=== PATIENT | male | born 1960 | race Caucasian/White ===

== ENCOUNTER 2017-01-17 20:40 | Emergency (ER) | payer SELFPAY ==
[~2017-01-17] VITALS: Ht 180.3 cm; Wt 59.3 kg
[~2017-01-17 20:40] MED LIST: BACT800T5 PO; CEPH500C3 PO
[2017-01-17 20:42] VITALS: BP 131/60; PULSE 68; RESP 20; TEMP 97.7; O2SAT 97
[2017-01-17] MEDS ORDERED: METH40TA PO (20:57)
[2017-01-17] MEDS ORDERED: LIDOCAINE HCL 1% 50 ML VIAL INFIL ONE (21:30)
--- NOTE | 2017-01-17 22:10 | PD ---
HPI . Right hand injury Chief Complaint: Injury Time Seen by Provider: 21:06 Travel History International Travel<30 days: No Contact w/Intl Traveler<30days: No Traveled to known affect area: No History of Present Illness HPI 56-year-old presents to the emergency department for evaluation of right hand injury that occurred at 11 AM today while he was at work. The patient was hit in his right hand with the blunt force object with such force that it is spliced the pad of his fourth digit on his right hand open with an approximate 3 cm laceration from the distal aspect of the finger up to the DIP. Patient denies any fevers, chills, nausea, vomiting, chest pain, shortness breath, paresthesias. Patient is able to move his right hand with some pain. Patient denies any major medical history. Only medication patient takes as a methadone daily. Patient has no known allergies. Patient is not sure if he is up-to- date on his tetanus. 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 SKIN: 3 cm laceration to the fourth digit on the right hand from the distal aspect of the digit to the DIP. HEAD: Normocephalic. Atraumatic. EYES: No scleral icterus. No injection or drainage. NECK: Supple, trachea midline. No JVD or lymphadenopathy. CARDIOVASCULAR: Regular rate and rhythm without murmurs, gallops, or rubs. RESPIRATORY: Breath sounds equal bilaterally. No accessory muscle use. GASTROINTESTINAL: Abdomen soft, non-tender, nondistended. MUSCULOSKELETAL: No cyanosis, or edema. BACK: Nontender without obvious deformity. No CVA tenderness. Data Data Last Documented VS Vital Signs Date Time Temp Pulse Resp B/P (MAP) Pulse Ox O2 Delivery O2 Flow Rate FiO2 01/17/17 20:42 97.7 68 20 131/60 (83) 97 Orders Orders Lidocaine 1% Inj (50 Ml) (Xylocaine 1% I (01/17/17 21:30) Ice/Cold Pack (01/17/17 21:28) MDM Medical Decision Making Medical Screen Exam Complete: Yes Emergency Medical Condition: Yes Differential Diagnosis Differential diagnoses include but not limited to laceration, open fracture, finger contusion Narrative Course 56-year-old male patient presents emergency room for evaluation of laceration to the fourth digit on his right finger. Patient was hit with a blunt force object at around 11 AM at his job and the force of the object spliced the pad of his finger open and a 3 cm laceration from the distal aspect of the phalange to the DIP. Patient is not sure of his tetanus is up-to-date. Patient will be given at tetanus at this visit. X-ray of the right hand will be ordered. Laceration will be repaired and patient placed on prophylactic antibiotics due to the hand being a high-risk area. Patient not in room when quality control lab tech came to get the x-ray. Patient has left the facility. Diagnosis Primary Impression: AMA Patient Instructions: General Instructions Departure Forms: Tests/Procedures Disposition: AGAINST MEDICAL ADVICE Condition: Stable Linda Gross Jan 17, 2017 22:10
== END 2017-01-17 22:08 | disposition left against medical advice (07) ==
LOC: PHEFT 20:40
DX: S69.91XA Unspecified injury of right wrist, hand and finger(s), initial encounter (principal); Z53.21 Procedure and treatment not carried out due to patient leaving prior to being seen by health care provider; W22.8XXA Striking against or struck by other objects, initial encounter; Y93.9 Activity, unspecified; Y99.0 Civilian activity done for income or pay; Z72.0 Tobacco use
CPT/HCPCS: 99281

== ENCOUNTER 2017-09-09 08:40 | Emergency (ER) | payer SELFPAY ==
[~2017-09-09 08:40] MED LIST changes: -BACT800T5 PO; -CEPH500C3 PO; +METH40TA PO
[2017-09-09 08:43] VITALS: BP 147/83; PULSE 77; RESP 14; TEMP 98.1; O2SAT 98
[2017-09-09] MEDS ORDERED: SODIUM CHLORIDE 0.9% FLUSH 10 ML FLUSH IV FLUSH PRN (09:00)
[2017-09-09] MEDS ORDERED: SODIUM CHLOR 0.9% 1000 ML INJ 1,000 ML IV SCH (09:00)
[2017-09-09 09:09] VITALS: BP 149/89; PULSE 67; RESP 18; O2SAT 95
[2017-09-09 09:42] LABS: AUTOMATED NEUTROPHIL # 4.3 TH/MM3 (1.8-7.7); BASOPHIL % 0.4 % (0.0-2.0); EOSINOPHIL % 0.6 % (0.0-4.0); HEMATOCRIT 43.5 % (39.0-51.0); LYMPH % 18.9 % (9.0-44.0); LYMPHOCYTE # 1.2 TH/MM3 (1.0-4.8); MEAN CELL VOLUME 91.9 FL (80.0-100.0); MEAN CORPUSCULAR HEMOGLOBIN 31.8 PG (27.0-34.0); MEAN CORPUSCULAR HGB CONC 34.6 % (32.0-36.0); MEAN PLATELET VOLUME 9.4 FL (7.0-11.0); MONO % 12.4 % (0.0-8.0); MONOCYTE # 0.8 TH/MM3 (0-0.9); NEUT % 67.7 % (16.0-70.0); PLATELET COUNT 178 TH/MM3 (150-450); RED BLOOD COUNT 4.73 MIL/MM3 (4.50-5.90); RED CELL DISTRIBUTION WIDTH 12.6 % (11.6-17.2); WHITE BLOOD COUNT 6.3 TH/MM3 (4.0-11.0)
--- NOTE | 2017-09-09 09:43 | PD ---
HPI Chief Complaint: GI Complaint Time Seen by Provider: 09:28 Travel History International Travel<30 days: No Contact w/Intl Traveler<30days: No Traveled to known affect area: No History of Present Illness HPI Patient is a 57-year-old male who presents the emergency room with complaints of abdominal pain with nausea and vomiting. Patient reports that since Friday morning, he has had epigastric to right upper quadrant abdominal pain with associated nausea and vomiting. Patient denies any radiating pain. Denies any chest pain or shortness of breath. Patient reports that symptoms began around 3 AM and has been persistent since then. Reports that nothing makes pain better or worse. Patient reports that he did have a normal bowel movement yesterday. Patient denies being around any sick contacts, denies any eating any foods which could have caused his symptoms. Denies fever/chills. 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) Allergies-Medications (Allergen,Severity, Reaction): Coded Allergies: No Known Allergies (Verified Adverse Reaction, Unknown, 09/09/17) Reported Meds & Prescriptions Reported Meds & Active Scripts Active Reported Methadone (Methadone HCl) 40 Mg Tab 170 Mg PO DAILY Review of Systems General / Constitutional: No: Fever, Chills Eyes: No: Visual changes HENT: No: Headaches Cardiovascular: No: Chest Pain or Discomfort Respiratory: No: Shortness of Breath Gastrointestinal: Positive: Nausea, Vomiting, Abdominal Pain Genitourinary: No: Dysuria Musculoskeletal: No: Pain Skin: No Rash Neurologic: No: Weakness Psychiatric: No: Depression Endocrine: No: Polydipsia Hematologic/Lymphatic: No: Easy Bruising Physical Exam Narrative GENERAL: Mild distress SKIN: Focused skin assessment warm/dry. HEAD: Atraumatic. Normocephalic. EYES: Pupils equal and round. No scleral icterus. No injection or drainage. ENT: No nasal bleeding or discharge. Mucous membranes pink and moist. NECK: Trachea midline. No JVD. CARDIOVASCULAR: Regular rate and rhythm. No murmur appreciated. RESPIRATORY: No accessory muscle use. Clear to auscultation. Breath sounds equal bilaterally. GASTROINTESTINAL: Abdomen soft, mildly tender to RUQ with no rebound or guarding , nondistended. Hepatic and splenic margins not palpable. MUSCULOSKELETAL: No obvious deformities. No clubbing. No cyanosis. No edema. NEUROLOGICAL: Awake and alert. No obvious cranial nerve deficits. Motor grossly within normal limits. Normal speech. PSYCHIATRIC: Appropriate mood and affect; insight and judgment normal. Data Data Last Documented VS Vital Signs Date Time Temp Pulse Resp B/P (MAP) Pulse Ox O2 Delivery O2 Flow Rate FiO2 09/09/17 11:27 99 Room Air 09/09/17 11:25 67 18 09/09/17 08:43 98.1 Orders Orders Complete Blood Count With Diff (09/09/17 09:00) Comprehensive Metabolic Panel (09/09/17 09:00) Lipase (09/09/17 09:00) Prothrombin Time / Inr (Pt) (09/09/17:00) Act Partial Throm Time (Ptt) (09/09/17 09:00) Urinalysis - C+S If Indicated (09/09/17 09:00) Iv Access Insert/Monitor (09/09/17 09:00) Ecg Monitoring (09/09/17 09:00) Oximetry (09/09/17 09:00) NPO (09/09/17 09:00) Sodium Chlor 0.9% 1000 Ml Inj (Ns 1000 M (09/09/17 09:00) Sodium Chloride 0.9% Flush (Ns Flush) (09/09/17 09:00) Electrocardiogram (09/09/17 09:00) Ondansetron Odt (Zofran Odt) (09/09/17 09:45) Us Abdomen Gallbladder (09/09/17 ) Famotidine (Pepcid) (09/09/17 09:45) Urine Culture (09/09/17 09:45) Ceftriaxone Inj (Rocephin Inj) (09/09/17 13:15) Labs Laboratory Tests Test 09/09/17 09:10 09/09/17 09:45 White Blood Count 6.3 TH/MM3 Red Blood Count 4.73 MIL/MM3 Hemoglobin 15.0 GM/DL Hematocrit 43.5 % Mean Corpuscular Volume 91.9 FL Mean Corpuscular Hemoglobin 31.8 PG Mean Corpuscular Hemoglobin Concent 34.6 % Red Cell Distribution Width 12.6 % Platelet Count 178 TH/MM3 Mean Platelet Volume 9.4 FL Neutrophils (%) (Auto) 67.7 % Lymphocytes (%) (Auto) 18.9 % Monocytes (%) (Auto) 12.4 % Eosinophils (%) (Auto) 0.6 % Basophils (%) (Auto) 0.4 % Neutrophils # (Auto) 4.3 TH/MM3 Lymphocytes # (Auto) 1.2 TH/MM3 Monocytes # (Auto) 0.8 TH/MM3 Eosinophils # (Auto) 0.0 TH/MM3 Basophils # (Auto) 0.0 TH/MM3 CBC Comment DIFF FINAL Differential Comment Prothrombin Time 10.9 SEC Prothromb Time International Ratio 1.1 RATIO Activated Partial Thromboplast Time 25.4 SEC Blood Urea Nitrogen 8 MG/DL Creatinine 0.94 MG/DL Random Glucose 111 MG/DL Total Protein 8.2 GM/DL Albumin 4.5 GM/DL Calcium Level 9.4 MG/DL Alkaline Phosphatase 76 U/L Aspartate Amino Transf (AST/SGOT) 53 U/L Alanine Aminotransferase (ALT/SGPT) 41 U/L Total Bilirubin 0.7 MG/DL Sodium Level 136 MEQ/L Potassium Level 3.9 MEQ/L Chloride Level 98 MEQ/L Carbon Dioxide Level 28.9 MEQ/L Anion Gap 9 MEQ/L Estimat Glomerular Filtration Rate 82 ML/MIN Lipase 38 U/L Urine Color YELLOW Urine Turbidity CLEAR Urine pH 5.5 Urine Specific [place] 1.013 Urine Protein NEG mg/dL Urine Glucose (UA) NEG mg/dL Urine Ketones NEG mg/dL Urine Occult Blood NEG Urine Nitrite NEG Urine Bilirubin NEG Urine Urobilinogen LESS THAN 2.0 MG/DL Urine Leukocyte Esterase LARGE Urine RBC LESS THAN 1 /hpf Urine WBC 19 /hpf Urine WBC Clumps RARE Urine Mucus FEW /lpf Microscopic Urinalysis Comment CULTURE INDICATED MDM Medical Decision Making Medical Screen Exam Complete: Yes Emergency Medical Condition: Yes Medical Record Reviewed: Yes Interpretation(s) EKG at 0920 shows normal sinus rhythm at 62 bpm, QT/QTc 435/441, there is no acute ST or T-wave changes. Vital Signs Date Time Temp Pulse Resp B/P (MAP) Pulse Ox O2 Delivery O2 Flow Rate FiO2 09/09/17 09:09 67 18 149/89 (109) 95 Room Air 09/09/17 08:43 98.1 77 14 147/83 (104) 98 Differential Diagnosis Cholecystitis, gastroenteritis, gastritis, GERD, gastric ulcer, ACS, arrhythmia Narrative Course Patient is a 57-year-old male who presents the emergency room with complaints of abdominal pain with nausea and vomiting which has been ongoing for the past 3 days. During the course of the patients emergency department visit, the patients history, examination, and differential diagnosis were reviewed with the patient. The patient was placed on a cardiac care unit nurse with oximetry and frequent blood pressure monitoring. The patient had an IV access obtained and blood work sent for analysis. A right upper quadrant ultrasound was ordered as patient does have right upper quadrant tenderness -concern for possible cholecystitis. The patient was initially provided IVF as well as zofran The patients laboratory studies were reviewed and remarkable for Laboratory Tests Test 09/09/17 09:10 09/09/17 09:45 White Blood Count 6.3 TH/MM3 (4.0-11.0) Red Blood Count 4.73 MIL/MM3 (4.50-5.90) Hemoglobin 15.0 GM/DL (13.0-17.0) Hematocrit 43.5 % (39.0-51.0) Mean Corpuscular Volume 91.9 FL (80.0-100.0) Mean Corpuscular Hemoglobin 31.8 PG (27.0-34.0) Mean Corpuscular Hemoglobin Concent 34.6 % (32.0-36.0) Red Cell Distribution Width 12.6 % (11.6-17.2) Platelet Count 178 TH/MM3 (150-450) Mean Platelet Volume 9.4 FL (7.0-11.0) Neutrophils (%) (Auto) 67.7 % (16.0-70.0) Lymphocytes (%) (Auto) 18.9 % (9.0-44.0) Monocytes (%) (Auto) 12.4 % (0.0-8.0) Eosinophils (%) (Auto) 0.6 % (0.0-4.0) Basophils (%) (Auto) 0.4 % (0.0-2.0) Neutrophils # (Auto) 4.3 TH/MM3 (1.8-7.7) Lymphocytes # (Auto) 1.2 TH/MM3 (1.0-4.8) Monocytes # (Auto) 0.8 TH/MM3 (0-0.9) Eosinophils # (Auto) 0.0 TH/MM3 (0-0.4) Basophils # (Auto) 0.0 TH/MM3 (0-0.2) CBC Comment DIFF FINAL Differential Comment Prothrombin Time 10.9 SEC (9.8-11.6) Prothromb Time International Ratio 1.1 RATIO Activated Partial Thromboplast Time 25.4 SEC (24.3-30.1) Blood Urea Nitrogen 8 MG/DL (7-18) Creatinine 0.94 MG/DL (0.60-1.30) Random Glucose 111 MG/DL (74-106) Total Protein 8.2 GM/DL (6.4-8.2) Albumin 4.5 GM/DL (3.4-5.0) Calcium Level 9.4 MG/DL (8.5-10.1) Alkaline Phosphatase 76 U/L (45-117) Aspartate Amino Transf (AST/SGOT) 53 U/L (15-37) Alanine Aminotransferase (ALT/SGPT) 41 U/L (12-78) Total Bilirubin 0.7 MG/DL (0.2-1.0) Sodium Level 136 MEQ/L (136-145) Potassium Level 3.9 MEQ/L (3.5-5.1) Chloride Level 98 MEQ/L (98-107) Carbon Dioxide Level 28.9 MEQ/L (21.0-32.0) Anion Gap 9 MEQ/L (5-15) Estimat Glomerular Filtration Rate 82 ML/MIN (>89) Lipase 38 U/L (73-393) Urine Color YELLOW (YELLW/STRAW) Urine Turbidity CLEAR (CLEAR) Urine pH 5.5 (5.0-8.5) Urine Specific [place] 1.013 (1.002-1.035) Urine Protein NEG mg/dL (NEG-TRACE) Urine Glucose (UA) NEG mg/dL (NEG) Urine Ketones NEG mg/dL (NEG) Urine Occult Blood NEG (NEG) Urine Nitrite NEG (NEG) Urine Bilirubin NEG (NEG) Urine Urobilinogen LESS THAN 2.0 MG/DL (LESS Urine Leukocyte Esterase LARGE (NEG) Urine RBC LESS THAN 1 /hpf (0-3) Urine WBC 19 /hpf (0-5) Urine WBC Clumps RARE (NONE) Urine Mucus FEW /lpf (OCC) Microscopic Urinalysis Comment CULTURE INDICATED Radiology studies were reviewed and remarkable for Last Impressions Gall Bladder Ultrasound 09/09/17 0000 Signed Impressions: CONCLUSION: 1. Mildly dilated common bile duct of uncertain etiology measuring up to 9 mm. There is sludge within the gallbladder. 2. Mild increased echotexture of the liver may indicate steatosis. Patient re-evaluated, patient reports that he is feeling much better at this time. Patient able to tolerate normal diet, patient with symptomatic cholelithiasis, instructed patient to eat a bland diet and monitor fat intake. He understands need to follow-up with a general surgeon for further interventions of his gallbladder. UA positive for large leuk esterase, 19 white blood cells, rare white blood cell clumps, urine culture was sent. Patient was given a dose of rocephin in the ER, will dc him on antibiotics. Signs and symptoms of an acute abdomen were reviewed with patient, understands that if he is not feeling better, he can return to the emergency room at anytime. Diagnosis Primary Impression: Cholelithiases Qualified Codes: K80.20 - Calculus of gallbladder without cholecystitis without obstruction Additional Impression: UTI (urinary tract infection) Qualified Codes: N30.01 - Acute cystitis with hematuria Referrals: Hira Gallegos MD Patient Instructions: General Instructions, Low Fat Diet (ED) Departure Forms: Tests/Procedures, Work Release Enter return to work date: Sep 11, 2017 Additional Instructions: Please provide patient with a copy of their lab work and studies at discharge* * Please follow up with your primary care doctor in 2-3 days Return to the ER if symptoms worsen or progress Return to the ER as needed Scripts Sulfamethoxazole-Trimethoprim (Bactrim DS) 800-160 Mg Tab 1 TAB PO BID for Infection, #20 TAB 0 Refills Prov: Mayra Diggs DO 09/09/17 Disposition: 01 DISCHARGE HOME Condition: Stable Mayra Diggs DO Sep 09, 2017 09:43
[2017-09-09] MEDS ORDERED: FAMOTIDINE 20 MG TAB PO ONE (09:45)
[2017-09-09] MEDS ORDERED: ONDANSETRON ODT 4 MG TAB PO ONE (09:45)
[2017-09-09 09:56] LABS: INTERNATIONAL NORMALIZED RATIO 1.1 RATIO; PROTHROMBIN TIME - PATIENT 10.9 SEC (9.8-11.6)
[2017-09-09 09:58] LABS: ALBUMIN 4.5 GM/DL (3.4-5.0); ALT (GPT) 41 U/L (12-78); AST (GOT) 53 U/L (15-37); BICARBONATE 28.9 MEQ/L (21.0-32.0); BLOOD UREA NITROGEN 8 MG/DL (7-18); CALCIUM 9.4 MG/DL (8.5-10.1); CHLORIDE 98 MEQ/L (98-107); CREATININE 0.94 MG/DL (0.60-1.30); GLOMERULAR FILTRATION RATE 82 ML/MIN (>89); GLUCOSE,RANDOM 111 MG/DL (74-106); SODIUM (NA) 136 MEQ/L (136-145)
[2017-09-09 10:07] LABS: ALKALINE PHOSPHATASE 76 U/L (45-117); TOTAL BILIRUBIN ADULT 0.7 MG/DL (0.2-1.0); TOTAL PROTEIN 8.2 GM/DL (6.4-8.2)
[2017-09-09 11:25] VITALS: BP 136/89; PULSE 67; RESP 18; O2SAT 99
[2017-09-09 11:27] VITALS: O2SAT 99
--- NOTE | 2017-09-09 11:45 | RADRPT ---
EXAM DATE: 09/09/2017 10:13 AM EDT AGE/SEX: 57 years / Male INDICATIONS: Right upper quadrant pain. CLINICAL DATA: This is the patient's initial encounter. Patient reports that signs and/or symptoms h ave been present for 1 week and indicates a pain score of 3/10. MEDICAL/SURGICAL HISTORY: . Inguinal hernia. Substance use. Tobacco use. . Inguinal hernia repair. Left ankle surgery. COMPARISON: No prior [facility] exams available for comparison MEASUREMENTS (cm x cm x cm): Liver:__ 15.7 cm length Common Bile Duct:__ 9mm FINDINGS: Liver: Increased echotexture without focal lesion or ductal dilatation. Portal Vein: Hepatopedal flow seen in portal vein. Common Duct: No stone or mass visualized. Gallbladder: There is sludge within the gallbladder. No wall thickening or pericholecystic fluid is present. Sonographic Calhoun sign is negative. Pancreas: Not well visualized. Right Kidney: No hydronephrosis, stone, or mass. There is a prominent extrarenal pelvis. Other: None. CONCLUSION: 1. Mildly dilated common bile duct of uncertain etiology measuring up to 9 mm. There is sludge withi n the gallbladder. 2. Mild increased echotexture of the liver may indicate steatosis. Electronically signed by: Carl Robertson MD 09/09/2017 11:44 AM EDT
[2017-09-09 12:32] LABS: BILIRUBIN, URINE NEG (NEG); BLOOD, URINE NEG (NEG); GLUCOSE,URINE NEG (NEG); KETONE, URINE NEG (NEG); MUCUS URINE FEW /lpf (OCC); NITRITE,URINE NEG (NEG); PH, URINE 5.5 (5.0-8.5); URINE COLOR YELLOW (YELLW/STRAW); URINE LEUKOCYTE ESTERASE LARGE (NEG); WHITE BLOOD CELL CLUMPS RARE
[2017-09-09] MEDS ORDERED: cefTRIAXone INJ 1,000 MG in SODIUM CHLORIDE 0.9% INJ 100 ML IV ONE (13:15)
[2017-09-09] MEDS ORDERED: BACT800T5 PO (13:28)
[2017-09-09 13:29] VITALS: BP 152/80; PULSE 80; RESP 18; O2SAT 99
--- NOTE | 2017-09-09 17:19 | EKG ---
Date Performed: 09/09/2017 Time Performed: 09:20:05 PTAGE: 57 years EKG: Sinus rhythm NORMAL ECG PREVIOUS TRACING : 12/30/2000 08.33 Since the previous tracing, no significant change noted DOCTOR: Odin Ayers Interpretating Date/Time 09/09/2017 17:18:04
== END 2017-09-09 14:20 | disposition home or self-care (01) ==
LOC: NEPC 08:40
DX: K80.20 Calculus of gallbladder without cholecystitis without obstruction (principal); N30.01 Acute cystitis with hematuria; F17.200 Nicotine dependence, unspecified, uncomplicated
CPT/HCPCS: 76705; 80053; 81001; 83690; 85025; 85610; 85730; 87086; 93005; 96361; 96374; 99285; J0696; J7030